=== PATIENT | male | born 1985 | race Caucasian/White ===

== ENCOUNTER 2017-01-22 10:41 | Emergency (ER) | payer MEDICAID ==
[~2017-01-22] VITALS: Ht 165.1 cm; Wt 62.0 kg
[~2017-01-22 10:41] MED LIST: MOBI15TA PO
[2017-01-22 10:42] VITALS: BP 124/68; PULSE 92; RESP 15; TEMP 98.4; O2SAT 98
[2017-01-22 11:20] LABS: BASOPHIL % 0.9 % (0.0-2.0); EOSINOPHIL # 0.1 TH/MM3 (0-0.4); EOSINOPHIL % 2.2 % (0.0-4.0); HEMATOCRIT 46.2 % (39.0-51.0); HEMO FLAGS DIFF FINAL; LYMPH % 25.8 % (9.0-44.0); LYMPHOCYTE # 1.2 TH/MM3 (1.0-4.8); MEAN CELL VOLUME 88.7 FL (80.0-100.0); MEAN CORPUSCULAR HEMOGLOBIN 30.6 PG (27.0-34.0); MEAN CORPUSCULAR HGB CONC 34.5 % (32.0-36.0); MONO % 8.1 % (0.0-8.0); PLATELET COUNT 185 TH/MM3 (150-450); RED BLOOD COUNT 5.21 MIL/MM3 (4.50-5.90); RED CELL DISTRIBUTION WIDTH 13.5 % (11.6-17.2); WHITE BLOOD COUNT 4.8 TH/MM3 (4.0-11.0)
[2017-01-22 11:28] LABS: ANION GAP 7 MEQ/L (5-15); BICARBONATE 24.7 MEQ/L (21.0-32.0); BLOOD UREA NITROGEN 10 MG/DL (7-18); CHLORIDE 108 MEQ/L (98-107); GLOMERULAR FILTRATION RATE 94 ML/MIN (>89); POTASSIUM 4.1 MEQ/L (3.5-5.1); SODIUM (NA) 140 MEQ/L (136-145)
[2017-01-22 11:32] LABS: CREATINE KINASE 174 U/L (39-308)
[2017-01-22 11:44] LABS: CKMB 2.1 NG/ML (0.5-3.6)
[2017-01-22 11:53] VITALS: BP 144/90; PULSE 78; RESP 16; O2SAT 100
--- NOTE | 2017-01-22 12:00 | PD ---
HPI Chief Complaint: Chest Pain Time Seen by Provider: 11:57 Travel History International Travel<30 days: No Contact w/Intl Traveler<30days: No Traveled to known affect area: No History of Present Illness HPI 31-year-old male came to the emergency room with history of right sided chest pain that is dull in nature but comes and goes. He says there is some tingling going down his right arm. This started this morning when he was having breakfast with his son around 8 AM. Since it continued it concerned the patient and he decided to come to the emergency room to be checked out. Patient says he gets sharp chest pain every now and then in different parts of his chest and has tried to ignore it. He is otherwise healthy. He's not a smoker and no history of street drugs. No significant family history of coronary artery disease either. He does seem pretty anxious when he is describing his symptoms. No associated shortness of breath, syncopal episode, nausea or diaphoresis. He says the pain is worse when he tries to sit up and move his right arm upwards of backwards. He does have history of rotator cuff issue with his shoulder. [facility] Past Medical History Narrative Medical List of his past medical, surgical, social and family history is reviewed from the nursing note. ADHD: Yes Anxiety: Yes Gastrointestinal Disorders: Yes Kidney Stones: Yes Influenza Vaccination: No Past Surgical History Abdominal Surgery: Yes (colostomy as a child and removed) Social History Alcohol Use: Yes (occ.) Tobacco Use: No Substance Use: No Allergies-Medications (Allergen,Severity, Reaction): Coded Allergies: No Known Allergies (Unverified , 01/22/17) Comments No known drug allergies. Reported Meds & Prescriptions Reported Meds & Active Scripts Active Ibuprofen 400 Mg Tab 400 Mg PO Q6H PRN Narrative Medication List of his home medications reviewed from the nursing note. Review of Systems Except as stated in HPI: all other systems reviewed are Neg Cardiovascular: Positive: Chest Pain or Discomfort Physical Exam Narrative GENERAL: Awake, alert, very anxious, no obvious distress SKIN: Focused skin assessment warm/dry. HEAD: Atraumatic. Normocephalic. EYES: Pupils equal and round. No scleral icterus. No injection or drainage. ENT: No nasal bleeding or discharge. Mucous membranes pink and moist. NECK: Trachea midline. No JVD. CARDIOVASCULAR: Regular rate and rhythm. No murmur appreciated. RESPIRATORY: No accessory muscle use. Clear to auscultation. Breath sounds equal bilaterally. GASTROINTESTINAL: Abdomen soft, non-tender, nondistended. Hepatic and splenic margins not palpable. MUSCULOSKELETAL: No obvious deformities. No clubbing. No cyanosis. No edema. NEUROLOGICAL: Awake and alert. No obvious cranial nerve deficits. Motor grossly within normal limits. Normal speech. PSYCHIATRIC: Appropriate mood and affect; insight and judgment normal. Data Data Last Documented VS Orders Orders Electrocardiogram (01/22/17 10:42) Complete Blood Count With Diff (01/22/17 10:42) Basic Metabolic Panel (Bmp) (01/22/17 10:42) Ckmb (Isoenzyme) Profile (01/22/17 10:42) Troponin I (01/22/17 10:42) CKMB (01/22/17 10:56) CKMB% (01/22/17 10:56) Chest, Pa & Lat (01/22/17 ) Shoulder, Complete (>2vws) (01/22/17 ) Ibuprofen (Motrin) (01/22/17 12:30) Ed Discharge Order (01/22/17 13:48) Labs Laboratory Tests Test 01/22/17 10:56 White Blood Count 4.8 TH/MM3 Red Blood Count 5.21 MIL/MM3 Hemoglobin 15.9 GM/DL Hematocrit 46.2 % Mean Corpuscular Volume 88.7 FL Mean Corpuscular Hemoglobin 30.6 PG Mean Corpuscular Hemoglobin Concent 34.5 % Red Cell Distribution Width 13.5 % Platelet Count 185 TH/MM3 Mean Platelet Volume 9.3 FL Neutrophils (%) (Auto) 63.0 % Lymphocytes (%) (Auto) 25.8 % Monocytes (%) (Auto) 8.1 % Eosinophils (%) (Auto) 2.2 % Basophils (%) (Auto) 0.9 % Neutrophils # (Auto) 3.0 TH/MM3 Lymphocytes # (Auto) 1.2 TH/MM3 Monocytes # (Auto) 0.4 TH/MM3 Eosinophils # (Auto) 0.1 TH/MM3 Basophils # (Auto) 0.0 TH/MM3 CBC Comment DIFF FINAL Differential Comment Blood Urea Nitrogen 10 MG/DL Creatinine 0.94 MG/DL Random Glucose 95 MG/DL Calcium Level 9.5 MG/DL Sodium Level 140 MEQ/L Potassium Level 4.1 MEQ/L Chloride Level 108 MEQ/L Carbon Dioxide Level 24.7 MEQ/L Anion Gap 7 MEQ/L Estimat Glomerular Filtration Rate 94 ML/MIN Total Creatine Kinase 174 U/L Creatine Kinase MB 2.1 NG/ML Troponin I LESS THAN 0.02 NG/ML MDM Medical Decision Making Medical Screen Exam Complete: Yes Emergency Medical Condition: Yes Medical Record Reviewed: Yes Interpretation(s) Twelve-lead EKG was reviewed by me. Normal sinus rhythm, normal axis, nonspecific ST-T wave changes. Heart rate of 69 bpm. Differential Diagnosis Musculoskeletal pain, atypical chest pain, ACS Narrative Course 1:40 PM blood test results of back and within acceptable limits. I had ordered a chest x-ray and a shoulder x-ray which were negative as well. Patient was given ibuprofen for his pain. In my opinion his pain is musculoskeletal by description. He is very young with no risk factors for coronary artery disease. I'm comfortable discharging him home. Procedures EKG Prior to Arrival: No Diagnosis Primary Impression: Musculoskeletal chest pain Additional Impression: Anxiety Referrals: Primary Care Physician Additional Instructions: Please return to the ER if the condition worsens or any other new concerns. Otherwise follow-up with your primary care next couple days. Take the medication as per the prescription direction. Med/Other Pt SpecificInfo: Prescription(s) given Scripts Ibuprofen (Ibuprofen) 400 Mg Tab 400 MG PO Q6H Y for pain, #30 TAB 0 Refills Prov: Sarbjit Guzman MD 01/22/17 Disposition: 01 DISCHARGE HOME Condition: Stable Sarbjit Guzman MD Jan 22, 2017 12:00
[2017-01-22] MEDS ORDERED: IBUPROFEN 600 MG TAB PO ONE (12:30)
--- NOTE | 2017-01-22 13:25 | RADRPT ---
EXAM DATE/TIME: 01/22/2017 13:19 [facility] COMPARISON: No previous studies available for comparison. INDICATIONS : Right shoulder pain, no known injury. MEDICAL HISTORY : None. SURGICAL HISTORY : None. ENCOUNTER: Initial ACUITY: 1 day PAIN SCORE: 6/10 LOCATION: Right shoulder FINDINGS: 4 views of the right shoulder demonstrate no fracture or dislocation. The acromioclavicular joint is intact. The visualized soft tissues demonstrate no abnormality. Visualized portions of the right lung are clear. No displaced rib fracture is seen. CONCLUSION: No acute abnormality is identified. Jimi Lee MD on January 22, 2017 at 13:23 Board Certified Radiologist. This report was verified electronically.
--- NOTE | 2017-01-22 13:26 | RADRPT ---
EXAM DATE/TIME: 01/22/2017 13:22 [facility] COMPARISON: CT ABDOMEN & PELVIS W/O CONTRAST, February 16, 2015, 11:55. SHOULDER RIGHT COMPLETE (>2VWS), January 22, 2017, 13:19. INDICATIONS : Chest pain on right side, no known injury. MEDICAL HISTORY : None. SURGICAL HISTORY : None. ENCOUNTER: Initial ACUITY: 1 day PAIN SCORE: 6/10 LOCATION: Right chest FINDINGS: PA and lateral views of the chest demonstrate a normal-sized cardiac silhouette. There is no effusion , consolidation, or pneumothorax. The bones and soft tissues demonstrate no acute abnormality. CONCLUSION: No acute cardiopulmonary abnormality is identified. Jimi Lee MD on January 22, 2017 at 13:24 Board Certified Radiologist. This report was verified electronically.
[2017-01-22] MEDS ORDERED: IBUP400T20 PO (13:47)
--- NOTE | 2017-01-22 19:08 | EKG ---
Date Performed: 01/22/2017 Time Performed: 10:51:46 PTAGE: 31 years EKG: Sinus rhythm NORMAL ECG PREVIOUS TRACING : 07/19/2015 12.23 Compared to the previous tracinG PREMATURE VENTRICULAR COMP LEXES ARE NO LONGER PRESENT DOCTOR: Terrell Ríos Interpretating Date/Time 01/22/2017 19:07:40
== END 2017-01-22 13:58 | disposition home or self-care (01) ==
LOC: NEPD 10:41
DX: R07.9 Chest pain, unspecified (principal); F41.9 Anxiety disorder, unspecified
CPT/HCPCS: 71020; 73030; 80048; 82550; 82552; 84484; 85025; 93005

== ENCOUNTER 2017-08-09 10:05 | Emergency (ER) | payer MEDICAID ==
[2017-08-09 10:50] LABS: BASOPHIL % 0.7 % (0.0-2.0); EOSINOPHIL # 0.1 TH/MM3 (0-0.4); EOSINOPHIL % 2.3 % (0.0-4.0); HEMATOCRIT 46.6 % (39.0-51.0); HEMO FLAGS DIFF FINAL; HEMOGLOBIN 16.2 GM/DL (13.0-17.0); LYMPH % 31.9 % (9.0-44.0); LYMPHOCYTE # 1.7 TH/MM3 (1.0-4.8); MEAN CELL VOLUME 87.7 FL (80.0-100.0); MEAN CORPUSCULAR HEMOGLOBIN 30.4 PG (27.0-34.0); MEAN CORPUSCULAR HGB CONC 34.7 % (32.0-36.0); MEAN PLATELET VOLUME 9.6 FL (7.0-11.0); MONO % 9.1 % (0.0-8.0); MONOCYTE # 0.5 TH/MM3 (0-0.9); PLATELET COUNT 190 TH/MM3 (150-450); RED BLOOD COUNT 5.32 MIL/MM3 (4.50-5.90); RED CELL DISTRIBUTION WIDTH 13.2 % (11.6-17.2); WHITE BLOOD COUNT 5.3 TH/MM3 (4.0-11.0)
[2017-08-09 11:07] LABS: ANION GAP 9 MEQ/L (5-15); BLOOD UREA NITROGEN 10 MG/DL (7-18); CALCIUM 9.4 MG/DL (8.5-10.1); CHLORIDE 109 MEQ/L (98-107); CREATININE 1.11 MG/DL (0.60-1.30); GLOMERULAR FILTRATION RATE 78 ML/MIN (>89); GLUCOSE,RANDOM 86 MG/DL (74-106); SODIUM (NA) 142 MEQ/L (136-145)
[2017-08-09 11:10] LABS: CREATINE KINASE 191 U/L (39-308); TROPONIN I LESS THAN 0.02 NG/ML (0.02-0.05)
[2017-08-09 11:22] LABS: CKMB 1.8 NG/ML (0.5-3.6)
== END 2017-08-09 11:48 | disposition home or self-care (01) ==
LOC: NEPC 10:05
DX: R07.89 Other chest pain (principal); R94.31 Abnormal electrocardiogram [ECG] [EKG]; F41.9 Anxiety disorder, unspecified; Z87.442 Personal history of urinary calculi
CPT/HCPCS: 71045; 80048; 82550; 82552; 84484; 85025; 93005; 99285